=== PATIENT | male | born 1970 | race Caucasian/White ===

== ENCOUNTER 2023-10-18 10:28 | Observation (INO) ==
[2023-10-18] MEDS ORDERED: IOPAMIDOL 125 ML BOTTLE IV ONE (10:29)
[2023-10-18 11:26] LABS: Basophils # (Auto) 0.05 K/mcL (0.00-0.30); Basophils % (Auto) 0.5 % (0.0-2.0); Eosinophils # (Auto) 0.18 K/mcL (0.00-0.70); Eosinophils % (Auto) 1.9 % (0.0-7.0); Hematocrit 45.5 % (40.1-51.0); Hemoglobin 14.9 g/dL (13.7-17.5); Lymphocytes # (Auto) 2.66 K/mcL (1.50-4.80); Mean Cell Volume 95.4 fL (80.0-100.0); Mean Corpuscular HGB Conc 32.7 g/dL (31.0-36.0); Mean Platelet Volume 9.8 fL (8.8-12.5); Monocytes # (Auto) 0.51 K/mcL (0.10-0.90); Monocytes % (Auto) 5.4 % (1.0-12.0); Neutrophils % (Auto) 63.9 % (38.0-78.0); Platelet Count 384 K/mcL (140-440); RBC 4.77 M/mcL (4.63-6.08); Red Cell Distribution Width 13.7 % (11.5-14.5); WBC 9.5 K/mcL (4.5-11.0)
[2023-10-18 11:36] LABS: ALT/SGPT < 5 U/L (<40); AST/SGOT 29 U/L (<40); Albumin 4.3 gm/dL (3.2-5.2); Albumin/Globulin Ratio 1.6 (1.0-2.3); Alkaline Phosphatase 78 U/L (39-117); Bilirubin,Total < 0.2 mg/dL (0.1-1.0); Blood Urea Nitrogen 15 mg/dL (6-20); Calcium 9.2 mg/dL (8.6-10.4); Carbon Dioxide 24 mmol/L (22-30); Chloride 101 mmol/L (96-108); Globulin 2.7 gm/dL (2.2-3.7); Glomerular Filtration Rate 68; Glucose 92 mg/dL (70-105); Potassium 4.8 mmol/L (3.3-5.1); Sodium 137 mmol/L (133-145)
[2023-10-18] MEDS: HYDROcodone/APAP 5/325MG TABLET PO ONE (12:29)
[2023-10-18 12:47] LABS: Prothrombin Time 13.2 sec (11.9-14.5)
[2023-10-18] MEDS: ASPIRIN 81 MG TAB.CHEW CHEWED ONE (14:47)
[2023-10-18] MEDS ORDERED: GADOBENATE DIMEGLUMINE 20 ML/VIAL IV ONE (16:16)
[2023-10-18 16:22] LABS: Appearance,Urine Clear (Clear); Bilirubin,Urine Negative (Negative); Color,Urine Yellow; Culture Indicated,Urine No; Glucose,Urine (UA) Negative (Negative); Ketones,Urine Negative (Negative); Leukocyte Esterase,Urine Negative /uL (Negative); Nitrate,Urine Negative (Negative); PH,Urine 7.5 (5.0-9.0); Protein,Urine Negative (Negative); Urine Blood Negative ery/mcL (Negative); Urine RBC 0 /hpf (0-3); Urine Squamous Epithelial Cell 0 /hpf (0-4); Urine WBC 0 /hpf (0-4); Urobilinogen,Urine Normal
[2023-10-18] MEDS ORDERED: hydrALAZINE 20 MG/ML VIAL IV PRN (16:52)
[2023-10-18] MEDS ORDERED: ONDANSETRON 4 MG/2 ML VIAL IV PRN (16:52)
[2023-10-18] MEDS ORDERED: traZODone HCL 50 MG TABLET PO PRN (16:52)
[2023-10-18] MEDS ORDERED: IPRATROPIUM/ALBUTEROL 3 ML AMPUL.NEB NEB PRN (16:52)
[2023-10-18] MEDS ORDERED: guaiFENesin/DEXTROMETHORPHAN 5ML UD CUP PO PRN (16:52)
[2023-10-18] MEDS: NICOTINE 21 MG PATCH TOPICAL SCH (16:59)
[2023-10-18] MEDS: AZITHROMYCIN 250 MG TABLET PO SCH (17:03)
[2023-10-18] MEDS: morphine 4 MG/ML VIAL IV PRN (17:03)
[2023-10-18] MEDS ORDERED: morphine 4 MG/ML VIAL ONE (17:03)
[2023-10-18] MEDS: METHOCARBAMOL 500 MG TABLET PO SCH (20:39)
[2023-10-18] MEDS: SENNOSIDES 1 TABLET PO SCH (20:39)
[2023-10-18] MEDS: 0.9 % SODIUM CHLORIDE 10 ML SYRINGE IV SCH (20:40)
[2023-10-18] MEDS: APIXABAN 5 MG TABLET PO SCH (20:40)
[2023-10-18] MEDS: DOCUSATE SODIUM 100 MG CAPSULE PO SCH (20:40)
[2023-10-19] MEDS: ACETAMINOPHEN 325 MG TABLET PO PRN (00:50)
[2023-10-19] MEDS ORDERED: morphine 4 MG/ML VIAL ONE (00:50)
[2023-10-19 06:37] LABS: Basophils # (Auto) 0.05 K/mcL (0.00-0.30); Basophils % (Auto) 0.6 % (0.0-2.0); Eosinophils % (Auto) 2.4 % (0.0-7.0); Hematocrit 46.4 % (40.1-51.0); Hemoglobin 15.2 g/dL (13.7-17.5); Lymphocytes # (Auto) 2.22 K/mcL (1.50-4.80); Lymphocytes % (Auto) 26.1 % (15.5-49.0); Mean Cell Volume 95.7 fL (80.0-100.0); Mean Corpuscular HGB Conc 32.8 g/dL (31.0-36.0); Mean Platelet Volume 9.5 fL (8.8-12.5); Monocytes # (Auto) 0.55 K/mcL (0.10-0.90); Monocytes % (Auto) 6.5 % (1.0-12.0); Neutrophils % (Auto) 64.2 % (38.0-78.0); Platelet Count 356 K/mcL (140-440); RBC 4.85 M/mcL (4.63-6.08); Red Cell Distribution Width 13.6 % (11.5-14.5); WBC 8.5 K/mcL (4.5-11.0)
[2023-10-19 06:59] LABS: ALT/SGPT 6 U/L (<40); AST/SGOT 21 U/L (<40); Albumin 4.1 gm/dL (3.2-5.2); Albumin/Globulin Ratio 1.6 (1.0-2.3); Alkaline Phosphatase 78 U/L (39-117); Bilirubin,Total 0.4 mg/dL (0.1-1.0); Blood Urea Nitrogen 16 mg/dL (6-20); Calcium 9.2 mg/dL (8.6-10.4); Carbon Dioxide 25 mmol/L (22-30); Chloride 103 mmol/L (96-108); Globulin 2.5 gm/dL (2.2-3.7); Glomerular Filtration Rate 76; Glucose 93 mg/dL (70-105); Potassium 4.4 mmol/L (3.3-5.1); Sodium 138 mmol/L (133-145)
[2023-10-19 07:39] LABS: HDL Cholesterol 37 mg/dL (>40); LDL Cholesterol,Calculated 143 mg/dL (<100); Non-HDL Cholesterol 168 mg/dL (<130); Triglycerides 126 mg/dL (<150)
[2023-10-19 07:41] LABS: Estimated Average Glucose(eAG) 117 mg/dL; Hemoglobin A1C 5.7 % Hgb (4.0-6.0)
[2023-10-19] MEDS: ASPIRIN 81 MG TAB.CHEW CHEWED SCH (08:23)
[2023-10-19] MEDS: OMEPRAZOLE 20 MG CAPSULE PO SCH (08:23)
[2023-10-19] MEDS: GABAPENTIN 300 MG CAPSULE PO PRN (08:24)
[2023-10-19] MEDS: ATORVASTATIN 40 MG TABLET PO SCH (08:24)
[2023-10-19] MEDS: SERTRALINE 100 MG TABLET PO SCH (08:24)
[2023-10-19] MEDS: IBUPROFEN 600 MG TABLET PO PRN (19:31)
[2023-10-19] MEDS: MELATONIN 3 MG TABLET PO PRN (20:25)
[2023-10-20] MEDS ORDERED: morphine 4 MG/ML VIAL ONE (01:40)
[2023-10-20 06:46] LABS: Basophils # (Auto) 0.05 K/mcL (0.00-0.30); Basophils % (Auto) 0.5 % (0.0-2.0); Eosinophils # (Auto) 0.18 K/mcL (0.00-0.70); Hematocrit 45.7 % (40.1-51.0); Hemoglobin 15.2 g/dL (13.7-17.5); Lymphocytes # (Auto) 2.18 K/mcL (1.50-4.80); Mean Corpuscular HGB Conc 33.3 g/dL (31.0-36.0); Mean Platelet Volume 9.3 fL (8.8-12.5); Monocytes % (Auto) 6.6 % (1.0-12.0); Neutrophils % (Auto) 66.7 % (38.0-78.0); Platelet Count 343 K/mcL (140-440); RBC 4.81 M/mcL (4.63-6.08); Red Cell Distribution Width 13.4 % (11.5-14.5); WBC 9.1 K/mcL (4.5-11.0)
[2023-10-20 07:04] LABS: ALT/SGPT 7 U/L (<40); AST/SGOT 22 U/L (<40); Albumin 3.9 gm/dL (3.2-5.2); Albumin/Globulin Ratio 1.4 (1.0-2.3); Alkaline Phosphatase 76 U/L (39-117); Bilirubin,Total 0.4 mg/dL (0.1-1.0); Blood Urea Nitrogen 17 mg/dL (6-20); Carbon Dioxide 25 mmol/L (22-30); Chloride 101 mmol/L (96-108); Globulin 2.8 gm/dL (2.2-3.7); Glomerular Filtration Rate 76; Glucose 113 mg/dL (70-105); Sodium 137 mmol/L (133-145)
== END 2023-10-20 15:00 | disposition home or self-care (01) ==
LOC: ED 10:28 → MEDSUR 10:28 → ED 10:28 → MEDSUR 14:20
PROVIDERS: ADMIT Internal Medicine; ATTEND Internal Medicine